=== PATIENT | male | born 1995 | race Caucasian/White ===

== ENCOUNTER 2017-03-19 19:22 | Emergency (ER) | payer MEDICAID ==
[2017-03-19 19:33] VITALS: BP 122/84
--- NOTE | 2017-03-19 19:55 | UC ---
Truncal Trauma HPI - HPI Summary HPI Summary: left side rib pain x 1 month was hit on his left side chest wall playing basketball one month ago cont. to have pain and not improving, pain with movement of his trunk no sob , no cough - History Of Current Complaint Chief Complaint: UCChestPain Stated Complaint: RIB INJURY Time Seen by Provider: 03/19/17 19:27 Hx Obtained From: Patient Onset/Duration: Sudden Onset, Lasting Weeks - 4, Still Present Severity Initially: Moderate Severity Currently: Moderate Mechanism Of Injury: Blunt Trauma - to the left chest wall Aggravating Factor(s): Movement, Deep Breathing Alleviating factor(s): Rest Associated Signs And Symptoms: Negative: SOB, Chest Pain, Cough, Hematuria, Abdominal Pain, Fever, Nausea, Vomiting - Allergies/Home Medications Allergies/Adverse Reactions: Allergies Allergy/AdvReac Type Severity Reaction Status Date / Time Sulfa Antibiotics Allergy Unknown Verified 03/19/17 19:33 Reaction Details Home Medications: Home Medications Insulin Aspart [Novolog] 100 unit SC QID 03/19/17 [History Confirmed 03/19/17] Insulin GLARGINE(*) [Lantus(*)] 22 units SUBCUT ONCE 03/19/17 [History Confirmed 03/19/17] PMH/Surg Hx/FS Hx/Imm Hx Endocrine History: Diabetes - Surgical History Surgical History: None - Family History Known Family History: Positive: Diabetes - Social History Alcohol Use: Weekly Substance Use Type: None Smoking Status (MU): Never Smoked Tobacco Review of Systems Constitutional: Negative Skin: Negative Eyes: Negative ENT: Negative All Other Systems Reviewed And Are Negative: Yes Physical Exam Triage Information Reviewed: Yes Appearance: Well-Appearing, No Pain Distress, Well-Nourished Vital Signs: Initial Vital Signs Temp 97.7 F 03/19/17 19:26 Pulse 79 03/19/17 19:26 Resp 16 03/19/17 19:26 BP 122/84 03/19/17 19:26 Pulse Ox 99 03/19/17 19:26 Vital Signs Reviewed: Yes Eyes: Positive: Conjunctiva Clear ENT: Positive: Normal ENT inspection, Hearing grossly normal, Pharynx normal Neck exam: Normal Neck: Positive: Supple, Nontender, No Lymphadenopathy Respiratory: Positive: Lungs clear, Normal breath sounds, No respiratory distress, No accessory muscle use, Other: - tendernenss left side chest wall Cardiovascular: Positive: RRR, No Murmur Abdomen Description: Positive: Nontender, Soft Bowel Sounds: Positive: Present Truncal Trauma Course/Dx - Differential Dx/Diagnosis Provider Diagnoses: costochondritis Discharge - Discharge Plan Condition: Stable Disposition: HOME Prescriptions: Naproxen [Naprosyn 500 mg] 500 mg PO BID #20 tab Patient Education Materials: Costochondritis (ED) Additional Instructions: follow up with your pcp in 2 weeks
== END 2017-03-19 19:57 | disposition home or self-care (01) ==
LOC: UCCORT 19:22
DX: M94.0 Chondrocostal junction syndrome [Tietze] (principal)
CPT/HCPCS: 99202; G0463